=== PATIENT | female | born 1970 | race Caucasian/White ===

== ENCOUNTER 2020-08-02 12:57 | Emergency (ER) | payer BC ==
[~2020-08-02] VITALS: Ht 160 cm; Wt 75.8 kg
[2020-08-02 17:38] VITALS: BP 115/74
== END 2020-08-02 17:40 | disposition home or self-care (01) ==
LOC: ER 12:57
DX: R51.9 Headache, unspecified (principal); Z90.49 Acquired absence of other specified parts of digestive tract